=== PATIENT | female | born 1935 | race Caucasian/White ===

== ENCOUNTER 2016-08-25 12:19 | Day surgery (SDC) | payer MEDICARE, BC ==
--- NOTE | ~2016-08-25 | EGD ---
EGD REPORT [facility] [address] [place] [id number] NAME: JAQUI MEAD : [birth year] STATUS : REG [facility] [place] PAT#: [id number] AGE: 81 ADM/REG DATE : 08/25/16 MR#: [id number] REPORT SERV DATE: 08/25/16 DICTATED BY: SAM LITTLE DATE: 08/25/16 REPORT STATUS : Draft TRANSCRIBED BY: [facility] DATE: 08/25/16 Endoscopy Center Patient Name: Jaqui Mead Date of : 1935 Attending MD: SAM LITTLE MD Procedure Date No Time: 08/25/2016 Procedure: Upper GI endoscopy Indications: Epigastric abdominal pain, Nausea Referring MD: CARMELLA MEJÍA MD, BING RAMIREZ Medicines: Propofol per Anesthesia Complications: No immediate complications. Estimated blood loss: None. Procedure: Pre-Anesthesia Assessment: - After reviewing the risks and benefits, the patient was deemed in satisfactory condition to undergo the procedure. - Prior to the procedure, a History and Physical was performed, and patient medications and allergies were reviewed. The patient's tolerance of previous anesthesia was also reviewed. The risks and benefits of the procedure and the sedation options and risks were discussed with the patient. All questions were answered, and informed consent was obtained. Prior Anticoagulants: The patient has taken no previous anticoagulant or antiplatelet agents. ASA Grade Assessment: III - A patient with severe systemic disease. After reviewing the risks and benefits, the patient was deemed in satisfactory condition to undergo the procedure. After obtaining informed consent, the endoscope was passed under direct vision. Throughout the procedure, the patient's blood pressure, pulse, and oxygen saturations were monitored continuously. The GIF [id number] was introduced through the mouth, and advanced to the jejunum. The upper GI endoscopy was accomplished without difficulty. The patient tolerated the procedure well. Findings: The examined esophagus was normal. Biopsies were taken with a cold forceps for histology. Estimated blood loss: none. Diffuse mild inflammation characterized by congestion (edema), erythema and granularity was found in the gastric antrum. There was also scant bile staining. Biopsies were taken with a cold forceps for histology. Estimated blood loss: none. The gastroesophageal junction (on retroflexion) was normal. The examined duodenum was normal. Biopsies were taken with a cold EGD REPORT [place] [id number] [facility] [place]. [address] NAME: JAQUI MEAD : [birth year] STATUS : REG [facility]#: [id number] AGE: 81 ADM/REG DATE : 08/25/16 MR#: [id number] REPORT SERV DATE: 08/25/16 DICTATED BY: SAM LITTLE DATE: 08/25/16 REPORT STATUS : Draft TRANSCRIBED BY: [facility] DATE: 08/25/16 forceps for histology. Estimated blood loss: none. Impression: - Normal esophagus. Biopsied. - Bile gastritis. Biopsied. - Normal gastroesophageal junction. - Normal examined duodenum. Biopsied. - Non-erosive esophageal reflux (NERD) disease present. Recommendation: - Discharge patient to home (ambulatory). - Return to previous diet. - Continue present medications including Carafate and Zofran as needed. - Increase Pepcid (famotidine) to 20 mg twice daily. - Await pathology results. - Return to GI clinic PRN. - Patient has a contact number available for emergencies. The signs and symptoms of potential delayed complications were discussed with the patient. Return to normal activities tomorrow. Written discharge instructions were provided to the patient. Procedure Code(s): --- Professional --- 91361, Esophagogastroduodenoscopy, flexible, transoral; with biopsy, single or multiple Diagnosis Code(s): --- Professional --- K29.60, Other gastritis without bleeding K21.9, Gastro-esophageal reflux disease without esophagitis R10.13, Epigastric pain R11.0, Nausea CPT copyright 2013 [employer]. All rights reserved. The codes documented in this report are preliminary and upon credit and collections analyst review may be revised to meet current compliance requirements. SAM LITTLE MD 08/25/2016 2:10 PM This report has been signed electronically. Number of Addenda: 0 Note Initiated On: 08/25/2016 1:47 PM Scope Withdrawal Time 0 hours 0 minutes 0 seconds EGD REPORT [facility] [address] [place] [address] NAME: JAQUI MEAD : [birth year] STATUS : REG [facility] [place] PAT#: [id number] AGE: 81 ADM/REG DATE : 08/25/16 MR#: [id number] REPORT SERV DATE: 08/25/16 DICTATED BY: SAM LITTLE DATE: 08/25/16 REPORT STATUS : Draft TRANSCRIBED BY: [employer] DATE: 08/25/16 [address] [id number]
[~2016-08-25 12:19] MED LIST: B COMPLETE PO; BEN25 PO; CALTRAT600 PO; COQ10100 MG OR; COREG12 PO; COREGCR10 PO; COREGCR40 PO; COZ25 PO; EXFORGE1 TAB PO; FISH-EPA1000 MG PO; FOLIC ACID400 MC1 PO; FOLIC PO; LIBRAX PO; LIPITOR40 PO; LUNESTA3 MG PO; MAG OXIDE250 MG PO; MAGNESIUM OXIDE PO; METAMUCIL CAN7 OZ PO; METPAKSF PO; MIRALAX POWDER1 PKT PO; MIRALAXPKT PO; MULTIVITAMI1 PO; PCET PO; PEP20 PO; PREV30 PO; PRISTIQ50 MG PO; PROBIOTIC PO; SEROQUEL200 MG PO; SEROQUEL25 PO; SUCR PO; SYSTANE OP; SYSTANE OPH; TRAZ50 PO; TUMS E-X750 M2 PO; VIACTIV PO; VIT B-SIX 50 MG50 MG PO; VITAMIN B-121000 MC1 SL; VITAMIN B-122500 MCG SL; VITAMIN D1000 UNI1 PO; VITAMIN D31000 UNIT PO; VITE PO; ZOCOR40 PO; ZOFRAN4 PO
== END 2016-08-25 23:59 | disposition home or self-care (01) ==
LOC: DMU 12:19
PROVIDERS: Internal Medicine Gastroenterology
PROC: 0DB68ZX Excision of Stomach, Via Natural or Artificial Opening Endoscopic, Diagnostic (ICD-10-PCS; 2016-08-25)
PROC: 0DB58ZX Excision of Esophagus, Via Natural or Artificial Opening Endoscopic, Diagnostic (ICD-10-PCS; principal; 2016-08-25 14:00)
DX: K29.50 Unspecified chronic gastritis without bleeding (principal); I10 Essential (primary) hypertension; F41.9 Anxiety disorder, unspecified; K21.9 Gastro-esophageal reflux disease without esophagitis; F32.9 Major depressive disorder, single episode, unspecified; D64.9 Anemia, unspecified; K57.92 Diverticulitis of intestine, part unspecified, without perforation or abscess without bleeding; E78.00 Pure hypercholesterolemia, unspecified; K58.9 Irritable bowel syndrome, unspecified; Z86.73 Personal history of transient ischemic attack (TIA), and cerebral infarction without residual deficits; Z88.2 Allergy status to sulfonamides; Z88.1 Allergy status to other antibiotic agents; Z88.8 Allergy status to other drugs, medicaments and biological substances; Z85.528 Personal history of other malignant neoplasm of kidney; Z90.89 Acquired absence of other organs; Z98.891 History of uterine scar from previous surgery; Z90.710 Acquired absence of both cervix and uterus; Z98.41 Cataract extraction status, right eye; Z98.42 Cataract extraction status, left eye; Z96.1 Presence of intraocular lens
CPT/HCPCS: 88305